=== PATIENT | male | born 1975 | race Hispanic/Latino ===

== ENCOUNTER 2017-08-25 15:35 | Emergency (ER) | payer MEDICAID ==
[2017-08-25 16:10] VITALS: BMI 27.4
[2017-08-25 16:14] VITALS: TEMP 97.9
[2017-08-25 16:53] LABS: BASO # 0.1 K/uL (0.0-0.2); BASO % 0.9 % (0.0-2.0); EOS # 0.4 K/uL (0.0-0.7); EOS % 3.3 % (0.0-4.0); HEMOGLOBIN 14.7 g/dL (12.0-18.0); MEAN CELL VOLUME 93.4 fL (80.0-94.0); MEAN CORPUSCULAR HEMOGLOBIN 31.7 pg (27.0-31.0); MEAN CORPUSCULAR HGB CONC 33.9 g/dL (33.0-37.0); MEAN PLATELET VOLUME 7.9 fL (7.2-11.7); MONO # 0.7 K/uL (0.0-0.8); NEUT # 8.2 K/uL (1.8-7.0); NEUT % 65.8 % (50.0-75.0); RBC 4.65 Mil/uL (4.40-5.90); RED CELL DISTRIBUTION WIDTH 13.3 % (11.5-14.5); WHITE BLOOD COUNT 12.5 K/uL (4.8-10.8)
[2017-08-25 16:55] LABS: URINE BILIRUBIN NEGATIVE (NEGATIVE); URINE BLOOD NEGATIVE (NEGATIVE); URINE CLARITY Clear (Clear); URINE COLOR Straw (YELLOW); URINE GLUCOSE (UA) NORMAL (Normal); URINE LEUKOCYTE ESTERASE NEG Leu/uL (Negative); URINE NITRATE NEGATIVE (NEGATIVE); URINE PROTEIN NEGATIVE (NEGATIVE); URINE UROBILINOGEN NORMAL mg/dL (0.2-1.0)
[2017-08-25 17:00] LABS: ALBUMIN 4.7 g/dL (3.5-5.0); ALT/SGPT 71 U/L (21-72); AST/SGOT 120 U/L (17-59); BLOOD UREA NITROGEN 10 mg/dL (9-20); GFR AFRICAN-AMERICAN > 60; GFR NON-AFRICAN AMERICAN > 60
--- NOTE | 2017-08-25 17:01 | C.PDOC ---
History Of Present Illness Chico España is a 41 year old male, with a past medical history of HTN, who presents to the emergency department requesting a detox. Patient states he drinks every day for many years, and wants to get his life back in track. Last drink was today this morning. Patient denies any headache, fever, nausea, vomit or other medical complaints. PMD: None provided. Time Seen by Provider: 08/25/17 16:26 Chief Complaint (Nursing): Substance Abuse History Per: Patient History/Exam Limitations: no limitations Onset/Duration Of Symptoms: Days Suicide/Self Injury Attempted (Context): None Involuntary Hold By: None Past Medical History Reviewed: Historical Data, Nursing Documentation, Vital Signs Vital Signs: Last Vital Signs Temp 97.9 F 08/25/17 16:10 Pulse 83 08/25/17 16:10 Resp 20 08/25/17 16:10 BP 146/99 H 08/25/17 16:10 Pulse Ox 96 08/25/17 17:07 - Medical History PMH: HTN Surgical History: Appendectomy Family History: States: Unknown Family Hx - Social History Hx Tobacco Use: Yes (Heavy smoker >10 cigarettes daily) Hx Alcohol Use: Yes Hx Substance Use: No - Immunization History Hx Tetanus Toxoid Vaccination: No Hx Influenza Vaccination: No Hx Pneumococcal Vaccination: No Review Of Systems Constitutional: Negative for: Fever Gastrointestinal: Negative for: Nausea, Vomiting Physical Exam - Physical Exam Skin: Normal Color, Warm, Dry, Other (covered in tattoos) Head: Atraumatic, Normacephalic Eye(s): bilateral: Normal Inspection Neck: Normal ROM, Supple Cardiovascular: Rhythm Regular Respiratory: Normal Breath Sounds, No Accessory Muscle Use Gastrointestinal/Abdominal: Normal Exam, Soft, No Tenderness Extremity: Normal ROM, No Deformity, No Swelling Neurological/Psych: Oriented x3 (awake and alert) ED Course And Treatment - Laboratory Results Result Diagrams: 08/25/17 16:45 08/25/17 16:45 O2 Sat by Pulse Oximetry: 96 (RA) Pulse Ox Interpretation: Normal Medical Decision Making Medical Decision Making: Initial Impression: ETOH detox Initial Plan: --Alcohol serum --Comp Metabolic Panel --Drug screen, urine --CBC w/ differential --AES crisis evaluation --Urinalysis --reevaluation -Patient tolerating PO, had some food and juice. Pending blood work and crisis evaluation. Disposition - Disposition Disposition: HOSPITALIZED Disposition Time: 17:28 Condition: STABLE - POA Present On Arrival: None - Clinical Impression Clinical Impression: Alcohol abuse - Scribe Statement Vincenzo Beth Provider Attestation: All medical record entries made by the Scribe were at my direction and personally dictated by me. I have reviewed the chart and agree that the record accurately reflects my personal performance of the history, physical exam, medical decision making, and the department course for this patient. I have also personally directed, reviewed, and agree with the discharge instructions and disposition. Physician Patient Turnover Patient Signed Over To: Rangel Lester Handoff Comments: [facility] detox admission , ETOH 460, pending crisis eval.
[2017-08-25 17:12] LABS: ALB/GLOB RATIO 1.1 (1.0-2.1)
[2017-08-25 17:13] LABS: BARBITURATES, UR NEGATIVE (NEGATIVE); BENZODIAZEPINES, UR NEGATIVE (NEGATIVE); OPIATES, UR NEGATIVE (NEGATIVE); PHENCYCLIDINE, UR NEGATIVE (NEGATIVE)
[2017-08-25 18:00] VITALS: BP 123/81; PULSE 80; RESP 18; O2SAT 95
== END 2017-08-25 19:04 | disposition home or self-care (01) ==
LOC: C.ER 15:35
DX: F10.10 Alcohol abuse, uncomplicated (principal); Y90.8 Blood alcohol level of 240 mg/100 ml or more; I10 Essential (primary) hypertension; F17.210 Nicotine dependence, cigarettes, uncomplicated

== ENCOUNTER 2017-10-16 17:40 | Inpatient (IN) | payer MEDICAID ==
[2017-10-16 17:40] VITALS: BMI 27.4
--- NOTE | 2017-10-16 19:24 | C.PDOC ---
History Of Present Illness 42 year old male presents to the emergency department requesting detox from alcohol. States he usually drinks vodka. Patient was pre-screened for detox. He denies having any suicidal or homicidal ideation. No physical complaints offered at this time. Time Seen by Provider: 10/16/17 19:03 Chief Complaint (Nursing): Substance Abuse History Per: Patient History/Exam Limitations: no limitations Onset/Duration Of Symptoms: Days Current Symptoms Are (Timing): Still Present Modifying Factor(s): Alcohol Past Medical History Reviewed: Historical Data, Nursing Documentation, Vital Signs Vital Signs: Last Vital Signs Temp 98.4 F 10/17/17 04:56 Pulse 82 10/17/17 04:56 Resp 18 10/17/17 04:56 BP 123/77 10/17/17 04:56 Pulse Ox 99 10/17/17 04:56 - Medical History PMH: HTN Surgical History: Appendectomy Family History: States: Unknown Family Hx - Social History Hx Tobacco Use: Yes (Heavy smoker >10 cigarettes daily) Hx Alcohol Use: Yes Hx Substance Use: No - Immunization History Hx Tetanus Toxoid Vaccination: No Hx Influenza Vaccination: No Hx Pneumococcal Vaccination: No Review Of Systems Except As Marked, All Systems Reviewed And Found Negative. Psych: Positive for: Other (alcohol dependence). Negative for: Suicidal ideation Physical Exam - Physical Exam Appears: Non-toxic, No Acute Distress Skin: Normal Color, Warm, Dry Head: Atraumatic, Normacephalic Eye(s): bilateral: Normal Inspection, PERRL, EOMI Nose: Normal Oral Mucosa: Moist Neck: Normal ROM, Supple Chest: Symmetrical Cardiovascular: Rhythm Regular Respiratory: Normal Breath Sounds, No Accessory Muscle Use Gastrointestinal/Abdominal: Soft, No Tenderness, No Distention Extremity: Bilateral: Atraumatic, Normal Color And Temperature, Normal ROM Neurological/Psych: Oriented x3, Normal Speech ED Course And Treatment - Laboratory Results Result Diagrams: 10/16/17 19:44 10/16/17 19:44 O2 Sat by Pulse Oximetry: 96 (RA) Pulse Ox Interpretation: Normal - Radiology CXR: Interpreted by Me, Viewed By Me CXR Interpretation: Yes: No Acute Disease Medical Decision Making Medical Decision Making: Time: 19:17 Initial Plan: * Urine drug screen * Alcohol screen * CMP * CBC * Urinalysis * 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 U tox is otherwise negative 00:53 Patient is medically cleared repeat breatalzier .1. calm cooperative librium dosed Disposition - Disposition Disposition: HOSPITALIZED Disposition Time: 05:30 Condition: STABLE - Clinical Impression Clinical Impression: Alcohol abuse - Scribe Statement The provider has reviewed the documentation as recorded by the Jennifer Ames Provider Attestation: All medical record entries made by the Hannaibe were at my direction and personally dictated by me. I have reviewed the chart and agree that the record accurately reflects my personal performance of the history, physical exam, medical decision making, and the department course for this patient. I have also personally directed, reviewed, and agree with the discharge instructions and disposition. Decision To Admit - Pt Status Changed To: Hospital Disposition Of: Inpatient - Admit Certification Admit to Inpatient:: After my assessment, the patient will require hospitalization for at least two midnights. This is because of the severity of symptoms shown, intensity of services needed, and/or the medical risk in this patient being treated as an outpatient. - InPatient: Physician Admission Certification: I certify that this patient requires 2 or more midnights of care for the following reason:: needs detox - . Bed Request Type: Regular Admitting Physician: Yolanda Johnston Patient Diagnosis: Alcohol abuse
[2017-10-16 19:46] LABS: BASO # 0.2 K/uL (0.0-0.2); BASO % 1.2 % (0.0-2.0); EOS # 0.3 K/uL (0.0-0.7); EOS % 2.4 % (0.0-4.0); HEMOGLOBIN 15.4 g/dL (12.0-18.0); LYMPH # 4.2 K/uL (1.0-4.3); LYMPH % 31.1 % (20.0-40.0); MEAN CELL VOLUME 92.9 fL (80.0-94.0); MEAN CORPUSCULAR HEMOGLOBIN 31.6 pg (27.0-31.0); MEAN CORPUSCULAR HGB CONC 34.1 g/dL (33.0-37.0); MEAN PLATELET VOLUME 8.6 fL (7.2-11.7); MONO # 0.7 K/uL (0.0-0.8); MONO % 5.6 % (0.0-10.0); NEUT # 8.1 K/uL (1.8-7.0); NEUT % 59.7 % (50.0-75.0); NRBC % 0.1 % (0.0-2.0); RBC 4.85 Mil/uL (4.40-5.90); RED CELL DISTRIBUTION WIDTH 14.3 % (11.5-14.5); WHITE BLOOD COUNT 13.5 K/uL (4.8-10.8)
[2017-10-16 19:51] LABS: SQUAMOUS EPITHIAL < 1 /hpf (0-5); URINE BACTERIA RARE (<OCC); URINE BILIRUBIN NEGATIVE (NEGATIVE); URINE BLOOD NEGATIVE (NEGATIVE); URINE CLARITY Hazy (Clear); URINE COLOR Yellow (YELLOW); URINE GLUCOSE (UA) NORMAL (Normal); URINE LEUKOCYTE ESTERASE NEG Leu/uL (Negative); URINE PROTEIN 3+ mg/dL (NEGATIVE)
[2017-10-16 20:04] LABS: ALB/GLOB RATIO 1.1 (1.0-2.1); ALBUMIN 5.1 g/dL (3.5-5.0); ALT/SGPT 102 U/L (21-72); AST/SGOT 124 U/L (17-59); BLOOD UREA NITROGEN 14 mg/dL (9-20); CALCIUM 8.7 mg/dl (8.6-10.4); GFR AFRICAN-AMERICAN > 60; GFR NON-AFRICAN AMERICAN > 60
[2017-10-16 20:06] LABS: BARBITURATES, UR NEGATIVE (NEGATIVE); BENZODIAZEPINES, UR NEGATIVE (NEGATIVE); OPIATES, UR NEGATIVE (NEGATIVE); PHENCYCLIDINE, UR NEGATIVE (NEGATIVE)
--- NOTE | 2017-10-17 05:23 | PCM.BM ---
<ApolinarRainaVirgie Grisel - Last Filed: 10/17/17 05:22> Treatment Plan Problems - Problems identified on initial assessmt Alcohol Dependence Date Initiated: 10/17/17 Time Initiated: 05:23 Assessment reference: NA Status: Active Treatment assets and liabiliti Patient Assests: ADL independent Patient Liabilities: live alone, substance abuse - Milieu Protocol Maintain good personal hygiene: daily Encourage regular showers, daily Remind patient to perform daily oral care, daily Assist patient to perform ADL's Maintain personal safety: every shift Educate patient to report safety concerns to staff, every shift Monitor environment for contraband/sharps Medication safety: Monitor for expected outcome, potential side effects: every shift, Assess barriers to learning: every shift, Assess readiness for medication education: every shift <Tami Brewster - Last Filed: 10/17/17 16:09> Family Contact Family involvement: Patient does not wish Family/SO involvement - Goals for Treatment Patient goals for treatment: Complete detox and transtion to IOP. Discharge/Continuing Care - Education Needs Education Needs: Patient Medication, Patient Diagnosis/Disease Process, Patient Coping Skills, Patient Anger Management skills, Patient Placement options, Patient Community resources - Discharge Discharge Criteria: No longer exhibiting s/s of withdrawal, Reduction of target symptoms Discharge to:: Home - Treatment Team Participation Patient/Family/SO Statement: 10/17/17 16:08 "I wanna go to IOP at [facility]..." Discussed with Family/SO: No Was Patient/Family/SO present at Treatment Team Meeting: Yes <Meme Robertson - Last Filed: 10/18/17 20:56> - Diagnosis (1) Alcohol use disorder, severe, dependence Status: Acute Interventions: 10/18/17 20:56 * Assess 7x/week regarding severity of withdrawal * Educate regarding risks, benefits, side effects and alternatives of medications * Use Motivational Interviewing for abstinence * Use CBT for relapse prevention * Medication management for withdrawal symptoms * Encourage medication assisted treatment *
--- NOTE | 2017-10-17 08:39 | RAD ---
Chest x-ray two views History: Detox. Comparison: None available. Findings: Mild venous congestion. Patchy increased markings at the left lung base. Top normal heart size. Impression: Mild venous congestion. Patchy increased markings at the left lung base.
[2017-10-17] MEDS: Multiple Vitamins Tab PO SCH (09:59)
--- NOTE | 2017-10-18 00:56 | PCM.PSYCH ---
Initial Psychiatric Evaluation - Initial Psychiatric Evaluation Type of Admission: Voluntary Legal Status: Capacity Chief Complaint (in patient's own words): I need detox History of Present Illness and Precipitating Events: He is seen, chart reviewed and case discussed. Patient is a 42 year old male, history of alcohol dependence, third time in detox (last two were in [facility] and last stay was a couple months ago) , and history of HTN. Patient currently drinks 1-2 pints of vodka per day. He started drinking when he was 16. Currently, patient complains of tremors, anxiety and sweating. Denies any hallucinations, suicidal, or homicidal ideations. He smokes 2 ppd cigarettes but denies drug use. No psych hx Medical hx: HTN Family psych hx: Denies Social: and has two children Current Medications: Active Medications Generic Name Dose Route Start Last Admin Trade Name Freq PRN Reason Stop Dose Admin Amlodipine Besylate 5 mg 10/17/17 10:00 10/17/17 09:59 Norvasc PO 5 mg DAILY VIKY Administration Clonidine HCl 0.1 mg 10/17/17 05:46 10/17/17 06:21 Catapres PO 0.1 mg Q6H PRN Administration Hypertension Folic Acid 1 mg 10/17/17 10:00 10/17/17 09:58 Folic Acid PO 1 mg DAILY VIKY Administration Gabapentin 300 mg 10/17/17 10:00 10/17/17 18:13 Neurontin PO 300 mg BID VIKY Administration Hydroxyzine HCl 25 mg 10/17/17 16:45 10/17/17 17:25 Atarax PO 25 mg Q6 PRN Administration Anxiety Lorazepam 1 mg 10/17/17 05:52 10/17/17 22:26 Ativan PO 1 mg Q6H PRN Administration Alcohol withdrawal Lorazepam 2 mg 10/17/17 12:00 10/17/17 18:14 Ativan PO 10/22/17 11:59 2 mg Q6H VIKY Administration Taper Metoprolol Tartrate 100 mg 10/17/17 10:45 10/17/17 11:32 Lopressor PO 100 mg DAILY VIKY Administration Multivitamins 1 tab 10/17/17 10:00 10/17/17 09:59 Hexavitamin PO 1 tab DAILY VIKY Administration Nicotine 1 patch 10/17/17 10:00 10/17/17 09:58 Nicoderm Cq TD 1 patch DAILY VIKY Administration Ondansetron HCl 4 mg 10/17/17 06:02 10/17/17 06:53 Zofran Tab PO 4 mg Q6H PRN Administration Vomiting Thiamine HCl 100 mg 10/17/17 10:00 10/17/17 09:58 Vitamin B1 Tab PO 100 mg DAILY VIKY Administration Topiramate 25 mg 10/17/17 10:45 10/17/17 18:12 Topamax PO 25 mg BID VIKY Administration Trazodone HCl 100 mg 10/17/17 08:55 10/17/17 21:31 Desyrel PO 100 mg HS PRN Administration Insomnia Past Psychiatric History - Past Psychiatric History Previous Treatment History: None Pertinent Medical Hx (Current Medical&Sleep Prob, Allergies): Allergies Allergy/AdvReac Type Severity Reaction Status Date / Time Sulfa (Sulfonamide Allergy Verified 10/16/17 18:28 Antibiotics) Metoprolol Succinate [Metoprolol Succinate Xl] 100 mg PO DAILY 08/25/17 amLODIPine [Norvasc] 5 mg PO DAILY 08/25/17 Review of Systems - Review of Systems All systems: reviewed and no additional remarkable complaints except - Neurological Neurological: Tremor - Psychiatric Psychiatric: Abnormal Sleep Pattern, Anxiety. absent: Auditory Hallucinations, Hallucinations, Homicidal Ideation, Suicidal Ideation, Visual Hallucinations Mental Status Examination - Personal Presentation Personal Presentation: Looks stated age - Affect Affect: Constricted - Motor Activity Motor Activity: Psychomotor Agitation - Reliability in Providing Information Reliability in Providing Information: Fair - Speech Speech: Coherent - Mood Mood: Anxious - Formal Thought Process Formal Thought Process: No Impairment - Cognitive Functions Orientation: Person, Place, Situation, Time Sensorium: Drowsy Attention/Concentration: Easily distracted Abstract Thinking: [place] Estimate of Intelligence: Average Judgement: Intact, as evidence by: Insight regarding need for hospitalization Memory: Recent intact, as evidence by: Ability to recall events of the day, Remote intact, as evidenced by: Abilit to recall sig. life events - Risk Risk: Seizure, Withdrawal, Diminished functioning - Strength & Assets Inventory Strength & Assets Inventory: Cooperative - Limitations Limitations: Other DSM 5 DX - DSM 5 DSM 5 Diagnosis: Alcohol use disorder - severe Alcohol withdrawal - Recommended/Plan of Treatment Treatment Recommendations and Plan of Treatment: Start taper with ativan due to elevated LFTs Gabapentin for augmentation As needed medications All risks, benefits and alternatives of the meds discussed,and the pt agreed and understood. Attend groups and activities Supportive therapy and psychoeducation [place] for abstinence CBT for relapse prevention Encourage MAT Refer to rehab or IOP, and self-help groups Smoking cessation with LA Nicotine patch 33 min Projected ELOS: 4-5 days - Smoking Cessation Smoking Cessation Initiated: Yes
[2017-10-18] MEDS: Multiple Vitamins Tab PO SCH (09:29)
--- NOTE | 2017-10-18 14:21 | PCM.PYCHPN ---
Psychiatric Progress Note - Psychiatric Progress Note Patient seen today, length of contact: 35 min Patient Chief Complaint: I want to leave" Problems Identified/Issues Discussed: The pt is seen 3 x and alsow with the team, chart reviewed and case discussed. He is starting to have DTs: confused, disoriented ("[place], ") and fluctuating cognition, saying nonsensical and irrelevant things ("I need to orange picking supervisor my children"... "You had a Alfredo Ride here and the nurses put me in it ") or asking for d/c without acknowledging the risks of leaving early. He also hallucinated several times since last night; saw his "sister" on the unit and then outside running (we are on the 7th floor) and saw a paper fell off from his hand but he did not have. He is given extra doses of ativan and one dose of haldol gabapentin is increased 1:1 started He does NOT have the capacity to make medical decisions at this point. Medication Change: Yes (see HPI) Medical Record Reviewed: Yes Mental Status Examination - Cognitive Function Orientation: Person Memory: Impaired Attention: Poor Concentration: Poor Association: Loose Fund of Knowledge: WNL - Mood Mood: Anxious - Affect Affect: Constricted - Speech Speech: Slurred - Formal Thought Process Formal Thought Process: Hallucinations - Suicidal Ideation Suicidal Ideation: No - Homicidal Ideation Homicidal Ideation: No Goal/Treatment Plan - Goal/Treatment Plan Need for Continued Stay: Discharge may exacerbated symptoms, Severe functional impairment Progress Toward Problem(s) and Goals/Treatment Plan: Adjust ativan taper Gabapentin for augmentation increased Ammonia level As needed medications All risks, benefits and alternatives of the meds discussed,and the pt agreed and understood. Attend groups and activities Supportive therapy and psychoeducation [place] for abstinence CBT for relapse prevention Encourage MAT Refer to rehab or IOP, and self-help groups Smoking cessation with [place] Nicotine patch 33 min
[2017-10-18 16:35] LABS: BASO # 0.1 K/uL (0.0-0.2); BASO % 0.7 % (0.0-2.0); EOS # 0.4 K/uL (0.0-0.7); EOS % 5.6 % (0.0-4.0); HEMOGLOBIN 13.7 g/dL (12.0-18.0); LYMPH # 1.7 K/uL (1.0-4.3); LYMPH % 24.5 % (20.0-40.0); MEAN CELL VOLUME 93.1 fL (80.0-94.0); MEAN CORPUSCULAR HEMOGLOBIN 31.1 pg (27.0-31.0); MEAN CORPUSCULAR HGB CONC 33.4 g/dL (33.0-37.0); MEAN PLATELET VOLUME 8.8 fL (7.2-11.7); MONO # 0.4 K/uL (0.0-0.8); NEUT # 4.5 K/uL (1.8-7.0); NEUT % 64.2 % (50.0-75.0); NRBC % 0.1 % (0.0-2.0); RBC 4.41 Mil/uL (4.40-5.90); RED CELL DISTRIBUTION WIDTH 13.8 % (11.5-14.5)
[2017-10-18 17:07] LABS: ALB/GLOB RATIO 1.3 (1.0-2.1); ALBUMIN 4.8 g/dL (3.5-5.0); ALT/SGPT 103 U/L (21-72); AST/SGOT 225 U/L (17-59); BLOOD UREA NITROGEN 8 mg/dL (9-20); CALCIUM 9.9 mg/dl (8.6-10.4); GFR AFRICAN-AMERICAN > 60; GFR NON-AFRICAN AMERICAN > 60
[2017-10-18] MEDS: Magnesium Oxide 400 mg Tab UD PO SCH (21:31)
[2017-10-19] MEDS: Magnesium Oxide 400 mg Tab UD PO SCH ×2 (09:10→17:17)
[2017-10-19] MEDS: Multiple Vitamins Tab PO SCH (09:10)
--- NOTE | 2017-10-19 11:37 | PCM.PYCHPN ---
Psychiatric Progress Note - Psychiatric Progress Note Patient seen today, length of contact: 17 min Patient Chief Complaint: I am OK" Problems Identified/Issues Discussed: The pt is seen, chart reviewed, case discussed with staff. The pt is compliant with medications and reports no side-effects. Symptoms are improving but needs more time to stabilize. He is more lucid today but still says things like "September" or "" and then he claimed there were "dyads" in his feet this mornig when he was talking about some pain in his feet and went on to claim someone "placed the dyads there." (?) After care discussed, and he agreed to stay and complete his detox. He is getting 8 mg ativan today, down from 11 mg yesterday. Support and psychoeducation given. Medication Change: Yes (see HPI) Medical Record Reviewed: Yes Mental Status Examination - Cognitive Function Orientation: Person Memory: Impaired Attention: Poor Concentration: Poor Association: Loose Fund of Knowledge: WNL - Mood Mood: Anxious - Affect Affect: Constricted - Speech Speech: Slurred - Formal Thought Process Formal Thought Process: Hallucinations - Suicidal Ideation Suicidal Ideation: No - Homicidal Ideation Homicidal Ideation: No Goal/Treatment Plan - Goal/Treatment Plan Need for Continued Stay: Discharge may exacerbated symptoms, Severe functional impairment Progress Toward Problem(s) and Goals/Treatment Plan: Adjusted ativan taper: 8 mg today, 6 mg tomorrow and 4 mg Tuesday, 2 mg Tuesday Gabapentin for augmentation Labs are checked, Mg added As needed medications All risks, benefits and alternatives of the meds discussed,and the pt agreed and understood. Attend groups and activities Supportive therapy and psychoeducation [place] for abstinence CBT for relapse prevention Encourage MAT Refer to rehab or IOP, and self-help groups Smoking cessation with [place] Nicotine patch Estimated Date of D/C: 10/22/17 - Smoking Cessation Smoking Cessation Initiated: Yes
[2017-10-19 14:03] VITALS: RESP 18
[2017-10-20] MEDS: Multiple Vitamins Tab PO SCH (09:51)
[2017-10-20] MEDS: Magnesium Oxide 400 mg Tab UD PO SCH (09:51)
[2017-10-20 10:10] VITALS: PULSE 80; TEMP 97.6
--- NOTE | 2017-10-20 11:34 | PCM.PYCHDC ---
Mental Status Examination - Mental Status Examination Orientation: Person Discharge Summary - Discharge Note Reason for Hospitalization: Voluntary Consultations:: List each consultation separately and include: 1. Reason for request. 2. Findings. 3. Follow-up Summary of Hospital Course include:: 1. Description of specific treatment plan utilized for patients during their course of treatmen. 2. Summarize the time- course for resolution of acute symptoms and/or regressed behaviors. 3. Describe issues identified and worked on during hospitalization. 4. Describe medication utilized. 5. Describe medical problems identified and treated. 6. Reassessment of suicide risk Summary of Hospital Course: He is seen, chart reviewed and case discussed. He scored 27 out of 30 in MMSE today On admission: Patient is a 42 year old male, history of alcohol dependence, third time in detox (last two were in [facility] and last stay was a couple months ago) , and history of HTN. Patient currently drinks 1-2 pints of vodka per day. He started drinking when he was 16. Currently, patient complains of tremors, anxiety and sweating. Denies any hallucinations, suicidal, or homicidal ideations. He smokes 2 ppd cigarettes but denies drug use. No psych hx Medical hx: HTN Family psych hx: Denies Social: and has two children Hospital course: The pt was admitted and started on treatment with psychotherapy, support, psychoeducation and medications. ME and CBT used. The pt attended groups and activities, as well as milieu therapy. All the risks and benefits of medications are discussed and the patient understood and agreed. The pt improved with the treatments provided. After care discussed with the patient. He will go to [facility] - Final Diagnosis (DSM 5) Condition upon Discharge: IMPROVED DSM 5: Alcohol withdrawal delirium tremens Alcohol use d/o -severe Tobacco use d/o - severe Disposition: HOME/ ROUTINE Follow-up Treatment Plan: Continue below medications after discharge. Follow after care plan as discussed. Use relapse prevention skills Return to ER or call 911 if suicidal, homicidal or symptoms relapse. Stay away from stress, alcohol and drugs. See primary doctor regularly and get labs. - Smoking Cessation Smoking Cessation Medication prescribed: No - Antipsychotic Medications Pt discharged on 2 or more routine antipsychotic medications: No
[2017-10-20 13:38] VITALS: BP 115/84; O2SAT 98
== END 2017-10-20 04:50 | disposition home or self-care (01) | DRG 751 ==
LOC: C.ER 17:40 → C.7D 10-17 04:27
PROVIDERS: ADMIT Psychiatry & Neurology Psychiatry; ATTEND Psychiatry & Neurology Psychiatry
PROC: HZ2ZZZZ Detoxification Services for Substance Abuse Treatment (ICD-10-PCS; principal; 2017-10-17)
PROC: HZ42ZZZ Group Counseling for Substance Abuse Treatment, Cognitive-Behavioral (ICD-10-PCS; 2017-10-17)
PROC: HZ52ZZZ Individual Psychotherapy for Substance Abuse Treatment, Cognitive-Behavioral (ICD-10-PCS; 2017-10-17)
PROC: HZ59ZZZ Individual Psychotherapy for Substance Abuse Treatment, Supportive (ICD-10-PCS; 2017-10-17)
PROC: HZ56ZZZ Individual Psychotherapy for Substance Abuse Treatment, Psychoeducation (ICD-10-PCS; 2017-10-17)
PROC: HZ46ZZZ Group Counseling for Substance Abuse Treatment, Psychoeducation (ICD-10-PCS; 2017-10-17)
DX: F10.231 Alcohol dependence with withdrawal delirium (principal); F17.210 Nicotine dependence, cigarettes, uncomplicated; I10 Essential (primary) hypertension; Y90.8 Blood alcohol level of 240 mg/100 ml or more; F41.9 Anxiety disorder, unspecified; G47.8 Other sleep disorders